=== PATIENT | female | born 1965 ===

== ENCOUNTER 2023-06-08 13:33 | Inpatient (IN) | payer BC ==
[2023-06-08] MEDS ORDERED: levETIRAcetam 500 MG (5 mL) VIAL ONE (14:04)
[2023-06-08 15:46] LABS: Bilirubin Negative (Negative); Blood, Urine Trace (Negative); Glucose, Urine (Dipstick) >=1000 mg/dL (Negative); Ketone, Urine Trace mg/dL (Negative); Leukocyte Negative (Negative); Nitrite Negative (Negative); Protein, Urine (Dipstick) Negative (Neg-Trace); Urobilinogen 0.2 mg/dL (Less than 2)
[2023-06-08 15:47] LABS: Bacteria/HPF None Seen HPF (None Seen); CAUTI Indications for Culture Alt mental st,lethar; RBC/HPF 0-3 HPF (0-3); Squamous Epithelial 0-3 HPF (0-3); WBC/HPF 0-3 HPF (0-3)
[2023-06-08 15:49] LABS: Clarity Clear (Clear)
[2023-06-08 15:51] LABS: Urine Culture Reflex No No
[2023-06-08 15:54] LABS: Amphetamine Not Detected (NotDetected); Barbiturates Screen Detected (NotDetected); Benzodiazepine Screen Not Detected (NotDetected); Cocaine Metabolite Screen Not Detected (NotDetected); Methadone Not Detected (NotDetected); Methamphetamine Not Detected (NotDetected); Opiate Screen Not Detected (NotDetected); Oxycodone Screen Not Detected (NotDetected); Phencyclidine (PCP) Not Detected (NotDetected); THC/Cannabinoid Screen Not Detected (NotDetected); Tricyclic Screen Not Detected (NotDetected)
[2023-06-08 17:20] LABS: #Basophils 0.1 thou/uL (0.0-0.2); #Monocytes 1.2 thou/uL (0.11-0.59); %Basophils 0.3 % (0.0-1.0); %Eosinophils 0.1 % (0.0-10.0); %Lymphocytes 11.3 % (21.0-51.0); %Monocytes 6.8 % (0.0-10.0); Hemoglobin 13.7 g/dL (12.0-16.0); Mean Corpuscular HGB CONC 32.6 g/dL (32.0-36.0); Mean Corpuscular Hemoglobin 28.2 pg (27.0-31.0); Mean Corpuscular Volume 86.4 fl (78.0-98.0); Mean Platelet Volume 10.7 fL (7.4-10.4); Platelet Count 379 10x3/uL (130-400); RBC Distribution Width 12.8 % (11.5-14.5); Red Blood Cell (RBC) Count 4.86 mill/uL (4.20-5.40); White Blood Cell (WBC) Count 17.3 10x3/uL (4.8-10.8)
[2023-06-08 17:44] LABS: ALT (SGPT) 16 U/L (8-55); AST (SGOT) 23 U/L (5-34); Acetaminophen Less than 10 mcg/mL (10.0-30.0); Albumin 4.7 g/dL (3.5-5.0); Alcohol Less than 10.0 mg/dL (Less than 10); Alkaline Phosphatase 95 U/L (40-110); Anion Gap 20 mmol/L (10-20); BUN (Urea Nitrogen) 11 mg/dL (9.8-20.1); Bilirubin, Total 0.9 mg/dL (0.2-1.2); CK (CPK) 223 U/L (29-168); Calc. Creatinine Clearance 0 mL/min (70-130); Calcium 9.6 mg/dL (7.8-10.44); Carbon Dioxide 21 mmol/L (22-29); Chloride 96 mmol/L (98-107); Estimated GFR 85; Globulin 4.1 g/dL (2.4-3.5); Glucose 312 mg/dL (70-105); Lipase 94 U/L (8-78); Potassium 3.6 mmol/L (3.5-5.1); Protein, Total 8.8 g/dL (6.0-8.3); Salicylate Less than 8.0 mg/dL (15.0-30.0); Sodium 133 mmol/L (136-145)
[2023-06-08 17:45] LABS: SARS-CoV-2 NAA Rapid Test Not Detected (NotDetected)
[2023-06-08 17:47] LABS: Troponin I Less than 0.010 ng/mL (< 0.028)
[2023-06-08 19:27] LABS: CSF Source CSF; Clarity Clear (Clear); Color Of CSF Supernatant COLORLESS (Colorless); Tube # 1; Tube # 2; Unspun CSF Color COLORLESS (Colorless)
[2023-06-08 19:33] LABS: CSF Source CSF; Tube # 4
[2023-06-08 19:34] LABS: Clarity Clear (Clear)
[2023-06-08 19:46] LABS: CSF, Glucose 177 mg/dl (40-70); CSF, Protein 25 mg/dL (15-40)
[2023-06-08] MEDS ORDERED: Aspirin Chewable 81 MG TAB ONE (20:11)
[2023-06-08] MEDS ORDERED: Aspirin 300 MG Suppository ONE (20:21)
[2023-06-08 21:05] LABS: Lactic Acid 1.7 mmol/L (0.5-2.2)
[2023-06-08] MEDS ORDERED: Sodium Chloride 0.9% 1,000 ML IV SCH (21:30)
[2023-06-08] MEDS ORDERED: Ondansetron ODT 4 MG TAB SL PRN (21:30)
[2023-06-08] MEDS ORDERED: Ondansetron PF 4 MG/2 ML Vial IVP PRN (21:30)
[2023-06-08] MEDS ORDERED: Lorazepam 2 MG/ML VIAL SLOW IVP PRN (21:36)
[2023-06-08] MEDS ORDERED: Dextrose 50% Abboject 50 ML SYRINGE SLOW IVP PRN (21:38)
[2023-06-08] MEDS ORDERED: Dextrose 5% in Water 1,000 ML IV PRN (21:38)
[2023-06-08] MEDS ORDERED: Glucagon 1 MG/ML KIT IM PRN (21:38)
[2023-06-09] MEDS: levETIRAcetam 500 MG (5 mL) VIAL SLOW IVP SCH ×4 (02:59→22:19)
[2023-06-09 03:24] VITALS: BMI 31.5
[2023-06-09 05:41] LABS: #Basophils 0.1 thou/uL (0.0-0.2); #Eosinphils 0.1 thou/uL (0.0-0.7); #Monocytes 1.4 thou/uL (0.11-0.59); #Neutrophils 8.4 thou/uL (1.40-6.50); %Basophils 0.4 % (0.0-1.0); %Eosinophils 0.4 % (0.0-10.0); %Lymphocytes 23.7 % (21.0-51.0); %Monocytes 10.7 % (0.0-10.0); %Neutrophils 64.4 % (42.0-75.0); Hematocrit 34.6 % (36.0-47.0); Hemoglobin 11.5 g/dL (12.0-16.0); Mean Corpuscular HGB CONC 33.2 g/dL (32.0-36.0); Mean Corpuscular Volume 84.2 fl (78.0-98.0); Mean Platelet Volume 10.8 fL (7.4-10.4); Platelet Count 346 10x3/uL (130-400); RBC Distribution Width 12.7 % (11.5-14.5); Red Blood Cell (RBC) Count 4.11 mill/uL (4.20-5.40); White Blood Cell (WBC) Count 13.1 10x3/uL (4.8-10.8)
[2023-06-09 05:48] LABS: Hemoglobin A1c 10.7 % (4.0-6.0)
[2023-06-09 06:01] LABS: Anion Gap 12 mmol/L (10-20); BUN (Urea Nitrogen) 9 mg/dL (9.8-20.1); Calc. Creatinine Clearance 134 mL/min (70-130); Calcium 8.5 mg/dL (7.8-10.44); Carbon Dioxide 24 mmol/L (22-29); Cardiac Risk 4.2 (Less than 4.5); Chloride 101 mmol/L (98-107); Cholesterol 138 mg/dl (< 200 Desired); Estimated GFR 103; Glucose 177 mg/dL (70-105); HDL Cholesterol 33 mg/dL (>60 Neg Risk); LDL Cholesterol, Calculated 84 mg/dL; Potassium 2.9 mmol/L (3.5-5.1); Sodium 134 mmol/L (136-145); Triglycerides 105 mg/dL (Less than 150)
[2023-06-09] MEDS: HumaLOG 300 UNITS/3 ML VIAL SC PRN (07:07)
[2023-06-09] MEDS ORDERED: Potassium Chloride 40 MEQ in Premix 1 BAG IVPB SCH (07:30)
[2023-06-09] MEDS: Potassium Chloride 20 MEQ in Premix 1 BAG IVPB SCH ×2 (08:41→15:22)
[2023-06-09 11:02] LABS: Magnesium 1.3 mg/dL (1.6-2.6)
[2023-06-09] MEDS ORDERED: Potassium Chloride 40 MEQ in Sodium Chloride 0.45% 1,000 ML IV SCH (14:30)
[2023-06-09] MEDS ORDERED: Magnesium Sulfate In Water 4 GM in Premix 1 BAG IVPB SCH ×2 (14:30→18:15)
[2023-06-09 15:04] LABS: Reference Lab Name LABCORP
[2023-06-09] MEDS ORDERED: levETIRAcetam 500 MG (5 mL) VIAL SLOW IVP SCH ×2 (15:15→21:00)
[2023-06-10 05:41] LABS: #Basophils 0.1 thou/uL (0.0-0.2); #Eosinphils 0.2 thou/uL (0.0-0.7); #Monocytes 0.8 thou/uL (0.11-0.59); #Neutrophils 5.9 thou/uL (1.40-6.50); %Basophils 0.9 % (0.0-1.0); %Eosinophils 1.8 % (0.0-10.0); %Lymphocytes 27.3 % (21.0-51.0); %Monocytes 8.6 % (0.0-10.0); %Neutrophils 61.1 % (42.0-75.0); Hematocrit 34.6 % (36.0-47.0); Hemoglobin 11.6 g/dL (12.0-16.0); Mean Corpuscular HGB CONC 33.5 g/dL (32.0-36.0); Mean Corpuscular Hemoglobin 28.2 pg (27.0-31.0); Mean Corpuscular Volume 84.2 fl (78.0-98.0); Mean Platelet Volume 10.6 fL (7.4-10.4); Platelet Count 349 10x3/uL (130-400); RBC Distribution Width 12.9 % (11.5-14.5); Red Blood Cell (RBC) Count 4.11 mill/uL (4.20-5.40); White Blood Cell (WBC) Count 9.6 10x3/uL (4.8-10.8)
[2023-06-10 06:16] LABS: Anion Gap 13 mmol/L (10-20); BUN (Urea Nitrogen) 8 mg/dL (9.8-20.1); Calc. Creatinine Clearance 138 mL/min (70-130); Calcium 8.3 mg/dL (7.8-10.44); Carbon Dioxide 22 mmol/L (22-29); Chloride 101 mmol/L (98-107); Estimated GFR 103; Glucose 158 mg/dL (70-105); Magnesium 1.7 mg/dL (1.6-2.6); Potassium 3.1 mmol/L (3.5-5.1); Sodium 133 mmol/L (136-145)
[2023-06-10] MEDS: levETIRAcetam 500 MG (5 mL) VIAL SLOW IVP SCH ×3 (09:20→21:44)
[2023-06-10] MEDS ORDERED: INSULIN ASPART PROT SQ PRN ×2 (11:37)
[2023-06-10] MEDS ORDERED: INSULN ASP SQ PRN ×2 (11:37)
[2023-06-10] MEDS ORDERED: [UNRECOGNIZED DRUG - OTHER] SQ PRN ×2 (11:37)
[2023-06-10] MEDS ORDERED: Labetalol HCl 100 MG/20 ML VIAL ONE (12:04)
[2023-06-10] MEDS ORDERED: Lacosamide 100 MG in Sodium Chloride 0.9% 50 ML IVPB SCH ×3 (14:15→21:00)
[2023-06-10] MEDS ORDERED: Lacosamide 200 MG in Sodium Chloride 0.9% 50 ML IVPB SCH ×2 (15:10→21:00)
[2023-06-10] MEDS: Labetalol HCl 100 MG/20 ML VIAL SLOW IVP PRN ×2 (16:58→22:51)
[2023-06-10] MEDS ORDERED: Electrolyte Replacement Protocol 1 EACH FS SCH (17:15)
[2023-06-10] MEDS ORDERED: Fosphenytoin Sodium 100 MG in Sodium Chloride 0.9% 50 ML IVPB SCH (21:00)
[2023-06-11] MEDS: Lacosamide 200 MG in Sodium Chloride 0.9% 50 ML IVPB SCH ×2 (05:39→15:30)
[2023-06-11 05:41] LABS: #Basophils 0.1 thou/uL (0.0-0.2); #Eosinphils 0.2 thou/uL (0.0-0.7); #Monocytes 0.9 thou/uL (0.11-0.59); #Neutrophils 8.6 thou/uL (1.40-6.50); %Basophils 0.5 % (0.0-1.0); %Eosinophils 1.4 % (0.0-10.0); %Lymphocytes 20.3 % (21.0-51.0); %Monocytes 7.6 % (0.0-10.0); %Neutrophils 69.9 % (42.0-75.0); Hematocrit 34.5 % (36.0-47.0); Hemoglobin 11.2 g/dL (12.0-16.0); Mean Corpuscular HGB CONC 32.5 g/dL (32.0-36.0); Mean Corpuscular Hemoglobin 28.1 pg (27.0-31.0); Mean Corpuscular Volume 86.5 fl (78.0-98.0); Mean Platelet Volume 10.3 fL (7.4-10.4); Platelet Count 355 10x3/uL (130-400); RBC Distribution Width 13.1 % (11.5-14.5); Red Blood Cell (RBC) Count 3.99 mill/uL (4.20-5.40); White Blood Cell (WBC) Count 12.4 10x3/uL (4.8-10.8)
[2023-06-11 06:03] LABS: Anion Gap 16 mmol/L (10-20); BUN (Urea Nitrogen) 10 mg/dL (9.8-20.1); Calc. Creatinine Clearance 134 mL/min (70-130); Calcium 8.8 mg/dL (7.8-10.44); Carbon Dioxide 21 mmol/L (22-29); Chloride 101 mmol/L (98-107); Estimated GFR 103; Glucose 178 mg/dL (70-105); Magnesium 1.5 mg/dL (1.6-2.6); Potassium 3.1 mmol/L (3.5-5.1); Sodium 135 mmol/L (136-145)
[2023-06-11] MEDS ORDERED: Magnesium 2 GM/50 ML(in water) 2 GM in Premix 1 BAG IVPB SCH (08:00)
[2023-06-11] MEDS ORDERED: Potassium Chloride 20 MEQ TAB PO SCH (08:00)
[2023-06-11] MEDS: Aspirin Chewable 81 MG TAB PO SCH (08:55)
[2023-06-11] MEDS: Labetalol HCl 100 MG/20 ML VIAL SLOW IVP PRN (08:55)
[2023-06-11] MEDS: levETIRAcetam 500 MG (5 mL) VIAL SLOW IVP SCH ×3 (08:55→22:30)
[2023-06-11] MEDS: Atorvastatin Calcium 40 MG TAB PO SCH (08:55)
[2023-06-11] MEDS ORDERED: Potassium Chloride 10 MEQ in Premix 1 BAG IVPB SCH (09:00)
[2023-06-11] MEDS ORDERED: Dulaglutide [Trulicity] 1.5 MG/0.5 ML Pen.Injctr SC SCH (09:00)
[2023-06-11] MEDS ORDERED: Piperacillin/Tazobactam 3.375 GM in Sodium Chloride 0.9% 100 ML IVPB SCH ×2 (10:00→12:00)
[2023-06-11] MEDS ORDERED: OCTAGAM 10% (10 GM/100 ML VIAL) IVPB SCH (13:45)
[2023-06-11] MEDS: HumaLOG 300 UNITS/3 ML VIAL SC PRN (13:53)
[2023-06-11] MEDS: Piperacillin/Tazobactam 3.375 GM in Sodium Chloride 0.9% 100 ML IVPB SCH ×2 (15:43→22:30)
[2023-06-11] MEDS ORDERED: PRIVIGEN IVPB SCH (17:00)
[2023-06-11] MEDS ORDERED: ADMIXTURE FEE CHEMO IVPB SCH (17:00)
[2023-06-11] MEDS ORDERED: Fosphenytoin Sodium 100 MG in Sodium Chloride 0.9% 50 ML IVPB SCH (20:00)
[2023-06-12] MEDS: Lacosamide 200 MG in Sodium Chloride 0.9% 50 ML IVPB SCH ×2 (04:13→17:47)
[2023-06-12 06:37] LABS: #Basophils 0.1 thou/uL (0.0-0.2); #Eosinphils 0.4 thou/uL (0.0-0.7); #Monocytes 0.7 thou/uL (0.11-0.59); #Neutrophils 6.6 thou/uL (1.40-6.50); %Basophils 0.8 % (0.0-1.0); %Eosinophils 4.5 % (0.0-10.0); %Lymphocytes 19.4 % (21.0-51.0); %Monocytes 6.9 % (0.0-10.0); %Neutrophils 68.1 % (42.0-75.0); Hematocrit 34.5 % (36.0-47.0); Mean Corpuscular HGB CONC 31.9 g/dL (32.0-36.0); Mean Corpuscular Hemoglobin 27.6 pg (27.0-31.0); Mean Corpuscular Volume 86.7 fl (78.0-98.0); Mean Platelet Volume 10.1 fL (7.4-10.4); Platelet Count 350 10x3/uL (130-400); RBC Distribution Width 13.1 % (11.5-14.5); Red Blood Cell (RBC) Count 3.98 mill/uL (4.20-5.40); White Blood Cell (WBC) Count 9.7 10x3/uL (4.8-10.8)
[2023-06-12] MEDS: Piperacillin/Tazobactam 3.375 GM in Sodium Chloride 0.9% 100 ML IVPB SCH (06:38)
[2023-06-12 07:04] LABS: Dilantin 10.9 ug/mL (10.0-20.0)
[2023-06-12 07:10] LABS: Anion Gap 12 mmol/L (10-20); BUN (Urea Nitrogen) 9 mg/dL (9.8-20.1); Calc. Creatinine Clearance 128 mL/min (70-130); Calcium 8.6 mg/dL (7.8-10.44); Carbon Dioxide 23 mmol/L (22-29); Chloride 104 mmol/L (98-107); Estimated GFR 102; Glucose 155 mg/dL (70-105); Potassium 3.5 mmol/L (3.5-5.1); Sodium 135 mmol/L (136-145)
[2023-06-12] MEDS: Fosphenytoin Sodium 100 MG in Sodium Chloride 0.9% 50 ML IVPB SCH ×2 (07:44→16:13)
[2023-06-12] MEDS ORDERED: Potassium Chloride 20 MEQ TAB PO SCH (09:00)
[2023-06-12] MEDS: levETIRAcetam 500 MG (5 mL) VIAL SLOW IVP SCH ×3 (09:15→20:54)
[2023-06-12] MEDS: Aspirin Chewable 81 MG TAB PO SCH (09:15)
[2023-06-12] MEDS: Atorvastatin Calcium 40 MG TAB PO SCH (09:15)
[2023-06-12] MEDS: Acetaminophen 325 MG TAB PO PRN (17:46)
[2023-06-12] MEDS: Labetalol HCl 100 MG/20 ML VIAL SLOW IVP PRN (20:18)
[2023-06-12] MEDS: HumaLOG 300 UNITS/3 ML VIAL SC PRN (21:19)
[2023-06-13] MEDS: Labetalol HCl 100 MG/20 ML VIAL SLOW IVP PRN ×2 (00:18→04:16)
[2023-06-13] MEDS: Lacosamide 200 MG in Sodium Chloride 0.9% 50 ML IVPB SCH (04:16)
[2023-06-13 05:13] LABS: #Basophils 0.1 thou/uL (0.0-0.2); #Eosinphils 0.7 thou/uL (0.0-0.7); #Monocytes 0.7 thou/uL (0.11-0.59); #Neutrophils 5.2 thou/uL (1.40-6.50); %Basophils 0.8 % (0.0-1.0); %Eosinophils 7.6 % (0.0-10.0); %Lymphocytes 23.9 % (21.0-51.0); %Monocytes 8.4 % (0.0-10.0); %Neutrophils 59.1 % (42.0-75.0); Hematocrit 34.8 % (36.0-47.0); Hemoglobin 11.3 g/dL (12.0-16.0); Mean Corpuscular HGB CONC 32.5 g/dL (32.0-36.0); Mean Corpuscular Hemoglobin 27.9 pg (27.0-31.0); Mean Corpuscular Volume 85.9 fl (78.0-98.0); Mean Platelet Volume 9.9 fL (7.4-10.4); Platelet Count 366 10x3/uL (130-400); RBC Distribution Width 13.2 % (11.5-14.5); Red Blood Cell (RBC) Count 4.05 mill/uL (4.20-5.40); White Blood Cell (WBC) Count 8.8 10x3/uL (4.8-10.8)
[2023-06-13 05:39] LABS: Anion Gap 14 mmol/L (10-20); BUN (Urea Nitrogen) 6 mg/dL (9.8-20.1); Calc. Creatinine Clearance 136 mL/min (70-130); Calcium 8.8 mg/dL (7.8-10.44); Carbon Dioxide 24 mmol/L (22-29); Chloride 101 mmol/L (98-107); Estimated GFR 103; Glucose 172 mg/dL (70-105); Potassium 3.7 mmol/L (3.5-5.1); Sodium 135 mmol/L (136-145)
[2023-06-13] MEDS: Aspirin Chewable 81 MG TAB PO SCH (08:44)
[2023-06-13] MEDS: Atorvastatin Calcium 40 MG TAB PO SCH (08:44)
[2023-06-13] MEDS: levETIRAcetam 500 MG (5 mL) VIAL SLOW IVP SCH (08:44)
[2023-06-13] MEDS: HumaLOG 300 UNITS/3 ML VIAL SC PRN ×2 (11:48→17:43)
[2023-06-13] MEDS: Acetaminophen 325 MG TAB PO PRN (15:49)
[2023-06-13] MEDS: PRIVIGEN IVPB SCH (17:39)
[2023-06-13] MEDS: ADMIXTURE FEE CHEMO IVPB SCH (17:39)
[2023-06-13] MEDS: levETIRAcetam 500 MG TAB PO SCH (21:35)
[2023-06-13] MEDS: Lacosamide 50 mg Tablet PO SCH (21:35)
[2023-06-14] MEDS: HumaLOG 300 UNITS/3 ML VIAL SC PRN ×4 (05:58→21:04)
[2023-06-14 06:36] LABS: #Basophils 0.1 thou/uL (0.0-0.2); #Eosinphils 0.7 thou/uL (0.0-0.7); #Monocytes 0.8 thou/uL (0.11-0.59); #Neutrophils 4.2 thou/uL (1.40-6.50); %Lymphocytes 26.3 % (21.0-51.0); %Monocytes 9.6 % (0.0-10.0); %Neutrophils 53.7 % (42.0-75.0); Hematocrit 35.4 % (36.0-47.0); Hemoglobin 11.2 g/dL (12.0-16.0); Mean Corpuscular HGB CONC 31.6 g/dL (32.0-36.0); Mean Corpuscular Hemoglobin 27.7 pg (27.0-31.0); Mean Corpuscular Volume 87.6 fl (78.0-98.0); Mean Platelet Volume 10.1 fL (7.4-10.4); Platelet Count 357 10x3/uL (130-400); RBC Distribution Width 13.2 % (11.5-14.5); Red Blood Cell (RBC) Count 4.04 mill/uL (4.20-5.40); White Blood Cell (WBC) Count 7.9 10x3/uL (4.8-10.8)
[2023-06-14 07:05] LABS: Anion Gap 14 mmol/L (10-20); BUN (Urea Nitrogen) 7 mg/dL (9.8-20.1); Calc. Creatinine Clearance 132 mL/min (70-130); Carbon Dioxide 23 mmol/L (22-29); Chloride 101 mmol/L (98-107); Estimated GFR 102; Glucose 160 mg/dL (70-105); Potassium 3.7 mmol/L (3.5-5.1); Sodium 134 mmol/L (136-145)
[2023-06-14] MEDS: levETIRAcetam 500 MG TAB PO SCH ×2 (08:50→20:43)
[2023-06-14] MEDS: Acetaminophen 325 MG TAB PO PRN (08:51)
[2023-06-14] MEDS: Aspirin Chewable 81 MG TAB PO SCH (08:51)
[2023-06-14] MEDS: Atorvastatin Calcium 40 MG TAB PO SCH (08:51)
[2023-06-14] MEDS ORDERED: PRIVIGEN IVPB SCH (09:00)
[2023-06-14] MEDS ORDERED: ADMIXTURE FEE CHEMO IVPB SCH (09:00)
[2023-06-14] MEDS: Lacosamide 50 mg Tablet PO SCH ×2 (10:48→20:42)
[2023-06-14] MEDS: PRIVIGEN IVPB SCH (18:44)
[2023-06-14] MEDS: ADMIXTURE FEE CHEMO IVPB SCH (18:44)
[2023-06-15] MEDS: Lacosamide 50 mg Tablet PO SCH ×2 (10:13→21:30)
[2023-06-15] MEDS: levETIRAcetam 500 MG TAB PO SCH ×2 (10:14→21:30)
[2023-06-15] MEDS: Acetaminophen 325 MG TAB PO PRN (10:14)
[2023-06-15] MEDS: Aspirin Chewable 81 MG TAB PO SCH (10:14)
[2023-06-15] MEDS: Atorvastatin Calcium 40 MG TAB PO SCH (10:14)
[2023-06-15] MEDS: HumaLOG 300 UNITS/3 ML VIAL SC PRN (17:36)
[2023-06-16 07:41] LABS: Anion Gap 11 mmol/L (10-20); BUN (Urea Nitrogen) 6 mg/dL (9.8-20.1); Calc. Creatinine Clearance 130 mL/min (70-130); Carbon Dioxide 26 mmol/L (22-29); Chloride 103 mmol/L (98-107); Estimated GFR 102; Glucose 156 mg/dL (70-105); Potassium 3.5 mmol/L (3.5-5.1); Sodium 136 mmol/L (136-145)
[2023-06-16] MEDS ORDERED: Potassium Chloride 20 MEQ TAB PO SCH (08:45)
[2023-06-16] MEDS: levETIRAcetam 500 MG TAB PO SCH ×2 (09:04→21:15)
[2023-06-16] MEDS: Atorvastatin Calcium 40 MG TAB PO SCH (09:04)
[2023-06-16] MEDS: Aspirin Chewable 81 MG TAB PO SCH (09:04)
[2023-06-16] MEDS: Lacosamide 50 mg Tablet PO SCH ×2 (09:04→21:15)
[2023-06-16] MEDS: HumaLOG 300 UNITS/3 ML VIAL SC PRN (21:15)
[2023-06-17 05:08] LABS: Anion Gap 13 mmol/L (10-20); BUN (Urea Nitrogen) 6 mg/dL (9.8-20.1); Calc. Creatinine Clearance 121 mL/min (70-130); Calcium 8.9 mg/dL (7.8-10.44); Carbon Dioxide 23 mmol/L (22-29); Chloride 103 mmol/L (98-107); Estimated GFR 97; Glucose 141 mg/dL (70-105); Potassium 3.6 mmol/L (3.5-5.1); Sodium 135 mmol/L (136-145)
[2023-06-17] MEDS: HumaLOG 300 UNITS/3 ML VIAL SC PRN (06:26)
[2023-06-17] MEDS: Lacosamide 50 mg Tablet PO SCH (08:52)
[2023-06-17] MEDS: Atorvastatin Calcium 40 MG TAB PO SCH (08:52)
[2023-06-17] MEDS: levETIRAcetam 500 MG TAB PO SCH (08:52)
[2023-06-17] MEDS: Aspirin Chewable 81 MG TAB PO SCH (08:52)
[2023-06-17 11:59] VITALS: BP 168/82; TEMP 97.9
[2023-06-18 09:09] LABS: Complement-C4 29 mg/dL (15-57)
[2023-06-18 13:51] LABS: ANA Symphony (Qualitative) Negative (Negative); ANA Symphony (Quantitative) 0.2 Ratio (< 0.7 Negative); Mitochondrial Ab 0.8 U/mL (<4 Negative); Thyroid Peroxidase IgG Ab 7.3 IU/mL (<25 Normal); dsDNA IgG Antibody 0.6 IU/mL (<10 Negative)
== END 2023-06-17 17:10 | disposition home or self-care (01) | DRG 100 ==
LOC: ERS 13:33 → 2SE 21:40 → OBSVTOIN 21:40
PROVIDERS: ADMIT Internal Medicine; ATTEND Family Medicine
PROC: 009U3ZX Drainage of Spinal Canal, Percutaneous Approach, Diagnostic (ICD-10-PCS; principal; 2023-06-08)
PROC: 4A10X4Z Monitoring of Central Nervous Electrical Activity, External Approach (ICD-10-PCS; 2023-06-09)
PROC: 4A10X4Z Monitoring of Central Nervous Electrical Activity, External Approach (ICD-10-PCS; 2023-06-10)
PROC: 4A10X4Z Monitoring of Central Nervous Electrical Activity, External Approach (ICD-10-PCS; 2023-06-11)
DX: G40.201 Localization-related (focal) (partial) symptomatic epilepsy and epileptic syndromes with complex partial seizures, not intractable, with status epilepticus (principal); G93.41 Metabolic encephalopathy; E87.20 Acidosis, unspecified; E87.1 Hypo-osmolality and hyponatremia; E11.9 Type 2 diabetes mellitus without complications; K21.9 Gastro-esophageal reflux disease without esophagitis; I10 Essential (primary) hypertension; E78.5 Hyperlipidemia, unspecified; E11.65 Type 2 diabetes mellitus with hyperglycemia; D72.829 Elevated white blood cell count, unspecified; E87.6 Hypokalemia; E83.42 Hypomagnesemia; Z88.8 Allergy status to other drugs, medicaments and biological substances; Z79.82 Long term (current) use of aspirin; Z79.899 Other long term (current) drug therapy; Z79.4 Long term (current) use of insulin; Z79.84 Long term (current) use of oral hypoglycemic drugs; Z98.890 Other specified postprocedural states; Z11.52 Encounter for screening for COVID-19
CPT/HCPCS: 36415; 36416; 51701; 62270; 70450; 70551; 70552; 71045; 80048; 80053; 80061; 80185; 80306; 80307; 81001; 82140; 82550; 82945; 83036; 83516; 83605; 83690; 83735; 83880; 84157; 84443; 84484; 85025; 86038; 86141; 86160; 86225; 86376; 87040; 87070; 87086; 87149; 87205; 87529; 89051; 93005; 93306; 95711; 95712; 95816; 95819; 96361; 96365; C9254; J1459; J1815; J1953; J2543; J3475; J3480; J3490; Q2009